=== PATIENT | female | born 2000 | race Caucasian/White ===

== ENCOUNTER 2022-02-03 01:45 | Emergency (ER) | payer BC ==
[2022-02-03] MEDS ORDERED: Nitrofurantoin Monohydrate/Macrocrystalline 100 MG Cap PO STA (06:29)
== END 2022-02-03 06:52 | disposition home or self-care (01) ==
LOC: JD.ED 01:45
DX: O23.42 Unspecified infection of urinary tract in pregnancy, second trimester (principal); N39.0 Urinary tract infection, site not specified; O99.891 Other specified diseases and conditions complicating pregnancy; N13.30 Unspecified hydronephrosis; Z3A.18 18 weeks gestation of pregnancy; Z87.891 Personal history of nicotine dependence
CPT/HCPCS: 76770; 81001; 87086; 87088; 87186; 99284; A9270